=== PATIENT | male | born 1955 | race Caucasian/White ===

== ENCOUNTER 2018-02-24 21:19 | Emergency (ER) | payer MEDICARE, MEDICAID ==
[~2018-02-24] VITALS: Ht 170.2 cm; Wt 95.0 kg
[2018-02-24 21:34] VITALS: BP 200/99
== END 2018-02-25 01:16 | disposition left against medical advice (07) ==
LOC: ER 21:19
DX: Z53.21 Procedure and treatment not carried out due to patient leaving prior to being seen by health care provider (principal)

== ENCOUNTER 2023-06-26 07:24 | Emergency (ER) | payer MEDICARE, MEDICAID ==
[~2023-06-26] VITALS: Ht 177.8 cm; Wt 84.0 kg
[2023-06-26 07:28] VITALS: TEMP 97.7; O2SAT 99
[2023-06-26] MEDS: ONDANSETRON HCL 4MG/2ML INJ IV ONE (08:24)
[2023-06-26 08:30] LABS: HEMATOCRIT. 31.7 % (42.0-52.0); HEMOGLOBIN. 10.4 g/dL (14.0-18.0); MEAN CORPUSCULAR HEMOGLOBIN 31.1 pg (28.0-32.0); MEAN CORPUSCULAR HGB CONC 32.9 g/dL (31.0-37.0); MEAN CORPUSCULAR VOLUME 94.6 fL (80.0-94.0); MEAN PLATELET VOLUME 8.9 fl (7.4-10.4); PLATELET 195 x1000/uL (130-400); RED BLOOD CELL COUNT 3.35 mill/uL (4.7-6.1); RED CELL DISTRIBUTION WIDTH 13.4 % (11.6-14.6); WHITE BLOOD COUNT 11.7 x1000/uL (4.5-11.0)
[2023-06-26 08:31] LABS: DIFFERENTIAL COMMENT 1
[2023-06-26 08:45] LABS: ALANINE AMINOTRANSFERASE 16 IU/L (10-49); ALBUMIN 3.9 g/dL (3.2-4.8); ASPARTATE AMINOTRANSFERASE 27 IU/L (<34); BILIRUBIN TOTAL 0.4 mg/dL (0.1-1.0); CALCIUM 8.1 mg/dL (8.7-10.4); CARBON DIOXIDE 21 mEq/L (21-32); CHLORIDE 111 mEq/L (98-107); CREATININE 2.7 mg/dL (0.6-1.3); GLUCOSE 95 mg/dL (70-105); POTASSIUM 5.2 mEq/L (3.5-5.1); PROTEIN TOTAL 7.2 g/dL (6.0-8.3); SODIUM 139 mEq/L (136-145); TROPONIN I HIGH SENSITIVITY 11 ng/L (3.0-53); UREA NITROGEN BLOOD 28 mg/dL (9-23)
[2023-06-26 10:30] VITALS: BP 122/61; PULSE 66; RESP 16
[2023-06-26 16:11] LABS: PLATELET ESTIMATE NORMAL
== END 2023-06-26 10:34 | disposition home or self-care (01) ==
LOC: ER 07:24
DX: K52.9 Noninfective gastroenteritis and colitis, unspecified (principal); I12.9 Hypertensive chronic kidney disease with stage 1 through stage 4 chronic kidney disease, or unspecified chronic kidney disease; E11.22 Type 2 diabetes mellitus with diabetic chronic kidney disease; N18.9 Chronic kidney disease, unspecified; Z98.890 Other specified postprocedural states
CPT/HCPCS: 99285; 96374; 71045; 80053; 83880; 85025; 84484; 36415; 93005; J2405

== ENCOUNTER 2024-08-26 08:57 | Inpatient (IN) | payer OTHER, MEDICAID ==
[~2024-08-26] VITALS: Ht 170.2 cm; Wt 93.4 kg
[2024-08-26] MEDS: ONDANSETRON HCL 4MG/2ML INJ IV ONE (09:46)
[2024-08-26] MEDS: FAMOTIDINE 20MG/2ML VIAL IV ONE (09:46)
[2024-08-26] MEDS: LACTATED RINGERS 1,000 ML IV SCH (09:52)
[2024-08-26 09:54] LABS: BASOPHILS % 0.3 % (0.0-2.0); EOSINOPHILS % 0.2 % (0.0-5.0); HEMATOCRIT. 36.8 % (42.0-52.0); HEMOGLOBIN. 12.8 g/dL (14.0-18.0); LYMPHOCYTES % 12.3 % (20.0-50.0); MEAN CORPUSCULAR HEMOGLOBIN 31.9 pg (28.0-32.0); MEAN CORPUSCULAR HGB CONC 34.6 g/dL (31.0-37.0); MEAN CORPUSCULAR VOLUME 92.1 fL (80.0-94.0); MEAN PLATELET VOLUME 10.3 fl (7.4-10.4); MONOCYTES % 4.3 % (2.0-8.0); NEUTROPHILS % 82.9 % (40.0-76.0); PLATELET 201 x1000/uL (130-400); RED CELL DISTRIBUTION WIDTH 12.9 % (11.6-14.6)
[2024-08-26 10:00] LABS: CHLORIDE 95 mEq/L (98-107); POTASSIUM 3.5 mEq/L (3.5-5.1); SODIUM 138 mEq/L (136-145)
[2024-08-26 10:01] LABS: CALCIUM 9.1 mg/dL (8.7-10.4); CARBON DIOXIDE 30 mEq/L (21-32)
[2024-08-26 10:06] LABS: CREATININE 2.9 mg/dL (0.6-1.3); GLUCOSE 185 mg/dL (70-105); TROPONIN I HIGH SENSITIVITY 28 ng/L (3.0-53); UREA NITROGEN BLOOD 30 mg/dL (9-23)
[2024-08-26 10:08] LABS: ALANINE AMINOTRANSFERASE 17 IU/L (10-49); ALBUMIN 4.6 g/dL (3.2-4.8); ASPARTATE AMINOTRANSFERASE 22 IU/L (<34); BILIRUBIN DIRECT 0.2 mg/dL (<=3.0); BILIRUBIN TOTAL 0.7 mg/dL (0.1-1.0); PROTEIN TOTAL 7.5 g/dL (6.0-8.3)
[2024-08-26] MEDS: ASPIRIN 325MG TABLET PO ONE ×2 (11:49→12:53)
[2024-08-26] MEDS: METOCLOPRAMIDE HCL 10MG/2ML VIAL IV ONE (11:49)
[2024-08-26] MEDS: ACETAMINOPHEN 1000MG/100ML 100 ML IV ONE (11:50)
[2024-08-26 12:31] LABS: TROPONIN I HIGH SENSITIVITY 36 ng/L (3.0-53)
[2024-08-26] MEDS: LABETALOL 5MG/ML 4ML INJ IV ONE (12:38)
[2024-08-26 13:10] VITALS: BP 195/91; PULSE 85; RESP 20; TEMP 36.4; O2SAT 98
[2024-08-26] MEDS ORDERED: NALOXONE HCL 0.4MG/ML VIAL IV PRN (13:45)
[2024-08-26] MEDS: KETOROLAC 30MG/ML VIAL IV SCH (13:48)
[2024-08-26] MEDS: HYDRALAZINE 20MG/ML VIAL IV PRN (13:48)
[2024-08-26] MEDS: ONDANSETRON HCL 4MG/2ML INJ IV PRN (13:48)
[2024-08-26 14:00] VITALS: BP 195/91; PULSE 85; RESP 20; TEMP 36.5
[2024-08-26 14:30] LABS: ALANINE AMINOTRANSFERASE 15 IU/L (10-49); ALBUMIN 4.8 g/dL (3.2-4.8); ASPARTATE AMINOTRANSFERASE 23 IU/L (<34); BILIRUBIN DIRECT 0.2 mg/dL (<=3.0); BILIRUBIN TOTAL 0.7 mg/dL (0.1-1.0); PROTEIN TOTAL 7.5 g/dL (6.0-8.3)
[2024-08-26 14:44] LABS: HEPATITIS B SURFACE ANTIGEN NEGATIVE (Negative)
[2024-08-26 15:04] LABS: HEPATITIS A AB IGM NEGATIVE (Negative)
[2024-08-26 15:05] LABS: HEPATITIS B CORE AB IGM NEGATIVE (Negative); HEPATITIS C AB NON REACTIVE (Neg) (Negative)
[2024-08-26 16:00] VITALS: BP 131/57; PULSE 88; RESP 20; TEMP 37; O2SAT 100
[2024-08-26 16:22] LABS: INR 1.1; PROTHROMBIN TIME 11.8 sec (9.6-11.0)
[2024-08-26] MEDS: HYDROCODONE/ACETAMINOPHEN 5/325MG TABLET PO PRN (17:37)
[2024-08-26 18:32] LABS: CLARITY URINE CLEAR (CLEAR); COLOR URINE YELLOW (YELLOW); GLUCOSE URINE TRACE (NEGATIVE); KETONES URINE TRACE (NEGATIVE); LEUKOCYTE ESTERASE URINE NEGATIVE (NEGATIVE); NITRITE URINE NEGATIVE (NEGATIVE); OCCULT BLOOD URINE 1+ (NEGATIVE); PROTEIN URINE 3+ (NEGATIVE); SPECIFIC GRAVITY URINE 1.016 (1.005-1.030); UROBILINOGEN URINE 0.2 E.U./dL (0.2-1.0)
[2024-08-26 20:00] VITALS: BP 131/71; PULSE 86; RESP 20; TEMP 37; O2SAT 98
[2024-08-26 20:41] LABS: BACTERIA URINE 1+; SQUAMOUS EPITHELIAL CELL URINE FEW /lpf (RARE/1+); WBC URINE 0-2 /hpf (0-2)
[2024-08-26] MEDS: AMLODIPINE 10MG TABLET PO SCH (20:55)
[2024-08-26] MEDS: SODIUM CHLORIDE 0.9% 1,000 ML IV SCH (20:55)
[2024-08-26] MEDS ORDERED: KETOROLAC 30MG/ML VIAL IV PRN (21:45)
[2024-08-26] MEDS: MORPHINE SULFATE 4 MG/ML INJ (FOR IV/IM USE) IV SCH (21:48)
[2024-08-27] VITALS: BP 128/71; PULSE 84; RESP 18; TEMP 37; O2SAT 97
[2024-08-27 04:00] VITALS: BP 134/73; PULSE 85; RESP 18; TEMP 37.2; O2SAT 97
[2024-08-27 06:38] LABS: POTASSIUM 3.7 mEq/L (3.5-5.1)
[2024-08-27 06:39] LABS: CALCIUM 8.6 mg/dL (8.7-10.4)
[2024-08-27 06:44] LABS: CREATININE 3.3 mg/dL (0.6-1.3)
[2024-08-27 06:47] LABS: HEMATOCRIT. 33.8 % (42.0-52.0); HEMOGLOBIN. 11.6 g/dL (14.0-18.0); LYMPHOCYTES % 7.5 % (20.0-50.0); MEAN CORPUSCULAR HEMOGLOBIN 31.9 pg (28.0-32.0); MEAN CORPUSCULAR HGB CONC 34.4 g/dL (31.0-37.0); MEAN CORPUSCULAR VOLUME 92.7 fL (80.0-94.0); MEAN PLATELET VOLUME 10.2 fl (7.4-10.4); MONOCYTES % 7.4 % (2.0-8.0); NEUTROPHILS % 85.1 % (40.0-76.0); PLATELET 183 x1000/uL (130-400); RED BLOOD CELL COUNT 3.65 mill/uL (4.7-6.1); WHITE BLOOD COUNT 12.6 x1000/uL (4.5-11.0)
[2024-08-27 08:00] VITALS: BP 161/58; PULSE 80; RESP 18; TEMP 36.7; O2SAT 94
[2024-08-27] MEDS: PANTOPRAZOLE SODIUM 40 MG/VIAL IV SCH (09:14)
[2024-08-27] MEDS: ENOXAPARIN 30MG/0.3ML SYR SUBCUT SCH (09:15)
[2024-08-27 12:00] VITALS: BP 158/78; PULSE 70; RESP 17; TEMP 36.7; O2SAT 95
[2024-08-27] MEDS: METOCLOPRAMIDE HCL 10MG/2ML VIAL IV PRN (12:41)
[2024-08-27 16:00] VITALS: BP 164/80; PULSE 70; RESP 16; TEMP 36.7; O2SAT 95
[2024-08-27] MEDS: MORPHINE SULFATE 4 MG/ML INJ (FOR IV/IM USE) IV SCH (17:05)
[2024-08-27 17:07] LABS: TRIGLYCERIDE 96 mg/dL (0-150)
[2024-08-27 17:08] LABS: LDL CHOLESTEROL 105 mg/dL (5-100)
[2024-08-27 17:09] LABS: CHOLESTEROL 131 mg/dL (<200); HDL CHOLESTEROL 32 mg/dL (>55); PHOSPHORUS 3.8 mg/dL (2.5-4.9)
[2024-08-27 17:20] LABS: CREATINE KINASE 1706 IU/L (46-171)
[2024-08-27 20:00] VITALS: BP 120/58; PULSE 82; RESP 17; TEMP 36.9; O2SAT 94
[2024-08-28] VITALS: BP 136/70; PULSE 74; RESP 18; TEMP 36.4; O2SAT 93
[2024-08-28 02:50] LABS: CREATININE URINE RANDOM 134.4 mg/dL
[2024-08-28 04:00] VITALS: BP 122/68; PULSE 60; RESP 19; TEMP 36.7; O2SAT 93
[2024-08-28 05:53] LABS: BASOPHILS % 0.2 % (0.0-2.0); EOSINOPHILS % 0.1 % (0.0-5.0); HEMATOCRIT. 33.2 % (42.0-52.0); HEMOGLOBIN. 11.6 g/dL (14.0-18.0); LYMPHOCYTES % 9.6 % (20.0-50.0); MEAN CORPUSCULAR HEMOGLOBIN 32.3 pg (28.0-32.0); MEAN CORPUSCULAR HGB CONC 34.9 g/dL (31.0-37.0); MEAN CORPUSCULAR VOLUME 92.6 fL (80.0-94.0); MEAN PLATELET VOLUME 9.9 fl (7.4-10.4); MONOCYTES % 6.5 % (2.0-8.0); NEUTROPHILS % 83.6 % (40.0-76.0); PLATELET 172 x1000/uL (130-400); RED BLOOD CELL COUNT 3.59 mill/uL (4.7-6.1); RED CELL DISTRIBUTION WIDTH 13.2 % (11.6-14.6)
[2024-08-28 05:59] LABS: POTASSIUM 3.7 mEq/L (3.5-5.1)
[2024-08-28 06:00] LABS: CALCIUM 8.8 mg/dL (8.7-10.4)
[2024-08-28 06:05] LABS: CREATININE 3.5 mg/dL (0.6-1.3)
[2024-08-28 08:00] VITALS: BP 168/83; PULSE 99; RESP 16; TEMP 36.2; O2SAT 95
[2024-08-28 12:00] VITALS: BP 148/72; PULSE 74; RESP 16; TEMP 36.3; O2SAT 95
[2024-08-28 16:00] VITALS: BP 156/87; PULSE 69; RESP 16; TEMP 36.3; O2SAT 95
[2024-08-28 20:00] VITALS: BP 111/95; PULSE 77; RESP 18; TEMP 37.4; O2SAT 93
[2024-08-29] VITALS: BP 178/82; PULSE 89; RESP 18; TEMP 36.8; O2SAT 94
[2024-08-29 04:00] VITALS: BP 151/66; PULSE 82; RESP 17; TEMP 36.7; O2SAT 95
[2024-08-29 06:34] LABS: CALCIUM 8.2 mg/dL (8.7-10.4); POTASSIUM 3.5 mEq/L (3.5-5.1)
[2024-08-29 06:35] LABS: BASOPHILS % 0.3 % (0.0-2.0); EOSINOPHILS % 0.2 % (0.0-5.0); HEMATOCRIT. 31.9 % (42.0-52.0); HEMOGLOBIN. 10.9 g/dL (14.0-18.0); LYMPHOCYTES % 10.8 % (20.0-50.0); MEAN CORPUSCULAR HEMOGLOBIN 31.8 pg (28.0-32.0); MEAN CORPUSCULAR HGB CONC 34.1 g/dL (31.0-37.0); MEAN CORPUSCULAR VOLUME 93.2 fL (80.0-94.0); MEAN PLATELET VOLUME 9.9 fl (7.4-10.4); MONOCYTES % 6.7 % (2.0-8.0); PLATELET 168 x1000/uL (130-400); RED BLOOD CELL COUNT 3.42 mill/uL (4.7-6.1); RED CELL DISTRIBUTION WIDTH 12.9 % (11.6-14.6); WHITE BLOOD COUNT 8.2 x1000/uL (4.5-11.0)
[2024-08-29 07:07] LABS: ALPHA FETOPROTEIN TUMOR MARKER < 1.8 ng/mL (0.0-8.4); CA 19-9 < 2 U/mL (0-35)
[2024-08-29 08:00] VITALS: BP 160/86; PULSE 61; RESP 18; TEMP 37.1; O2SAT 94
[2024-08-29] MEDS: ACETAMINOPHEN 325MG TABLET PO PRN (12:05)
[2024-08-29 12:15] VITALS: BP 155/75; PULSE 81; RESP 16; TEMP 37.7; O2SAT 93
[2024-08-29 14:19] LABS: IRON 94 ug/dL (65-175)
[2024-08-29 14:21] LABS: CREATINE KINASE 757 IU/L (46-171)
[2024-08-29 14:22] LABS: TOTAL IRON BINDING CAPACITY 278 ug/dl (250-425)
[2024-08-29 16:02] VITALS: BP 157/74; PULSE 67; RESP 18; TEMP 36.9; O2SAT 97
[2024-08-29] MEDS: POLYETHYLENE GLYCOL 3350 (17GM) 1 DOSE PACK PO SCH (18:09)
[2024-08-29 20:00] VITALS: BP 146/80; PULSE 78; RESP 20; TEMP 37.2; O2SAT 95
[2024-08-29] MEDS: DOCUSATE SODIUM 100MG CAPSULE PO SCH (21:55)
[2024-08-29] MEDS: SENNOSIDES 8.6MG TABLET PO SCH (21:55)
[2024-08-30] VITALS: BP 145/70; PULSE 71; RESP 18; TEMP 37.2; O2SAT 95
[2024-08-30 04:00] VITALS: BP 153/87; PULSE 71; RESP 20; TEMP 37.7; O2SAT 95
[2024-08-30 06:11] LABS: ANTI-NUCLEAR ANTIBODIES DIRECT Negative (Negative); COMPLEMENT C3 97 mg/dL (82-167); COMPLEMENT C4 22 mg/dL (12-38)
[2024-08-30 06:49] LABS: CHLORIDE 103 mEq/L (98-107); POTASSIUM 3.4 mEq/L (3.5-5.1); SODIUM 139 mEq/L (136-145)
[2024-08-30 06:52] LABS: CALCIUM 8.5 mg/dL (8.7-10.4); CARBON DIOXIDE 25 mEq/L (21-32)
[2024-08-30 06:57] LABS: ALANINE AMINOTRANSFERASE 30 IU/L (10-49); CREATININE 2.8 mg/dL (0.6-1.3); GLUCOSE 133 mg/dL (70-105); UREA NITROGEN BLOOD 43 mg/dL (9-23)
[2024-08-30 06:59] LABS: ALBUMIN 3.9 g/dL (3.2-4.8); ASPARTATE AMINOTRANSFERASE 48 IU/L (<34); BILIRUBIN TOTAL 0.7 mg/dL (0.1-1.0); PHOSPHORUS 2.8 mg/dL (2.5-4.9)
[2024-08-30 07:00] LABS: PROTEIN TOTAL 6.1 g/dL (6.0-8.3)
[2024-08-30 07:33] LABS: BASOPHILS % 0.2 % (0.0-2.0); EOSINOPHILS % 0.3 % (0.0-5.0); HEMATOCRIT. 31.1 % (42.0-52.0); HEMOGLOBIN. 10.9 g/dL (14.0-18.0); LYMPHOCYTES % 12.8 % (20.0-50.0); MEAN CORPUSCULAR HEMOGLOBIN 32.3 pg (28.0-32.0); MEAN CORPUSCULAR HGB CONC 34.9 g/dL (31.0-37.0); MEAN CORPUSCULAR VOLUME 92.5 fL (80.0-94.0); MEAN PLATELET VOLUME 10.2 fl (7.4-10.4); NEUTROPHILS % 78.7 % (40.0-76.0); PLATELET 163 x1000/uL (130-400); RED BLOOD CELL COUNT 3.37 mill/uL (4.7-6.1); RED CELL DISTRIBUTION WIDTH 12.8 % (11.6-14.6); WHITE BLOOD COUNT 7.6 x1000/uL (4.5-11.0)
[2024-08-30 08:00] VITALS: BP 139/85; PULSE 70; RESP 16; TEMP 37; O2SAT 95
[2024-08-30 12:00] VITALS: BP 152/80; PULSE 71; RESP 16; TEMP 36.6; O2SAT 96
[2024-08-30 16:00] VITALS: BP 158/77; PULSE 72; RESP 16; TEMP 37.2; O2SAT 96
[2024-08-30] MEDS: POTASSIUM CHLORIDE 20MEQ TABLET SR PO NR (18:01)
[2024-08-30 20:00] VITALS: BP 115/67; PULSE 74; RESP 18; TEMP 37.1; O2SAT 94
[2024-08-31] VITALS: BP 150/66; PULSE 64; RESP 18; TEMP 37.3; O2SAT 95
[2024-08-31 06:05] VITALS: BP 176/85; PULSE 71; RESP 20; TEMP 37.1; O2SAT 95
[2024-08-31 07:00] LABS: POTASSIUM 3.4 mEq/L (3.5-5.1)
[2024-08-31 07:06] LABS: CREATININE 2.5 mg/dL (0.6-1.3)
[2024-08-31 08:00] VITALS: BP 152/77; PULSE 102; PULSE 82; RESP 18; TEMP 36.6; O2SAT 9; O2SAT 97
[2024-08-31 11:06] VITALS: BP 153/82; PULSE 72; TEMP 97.2; O2SAT 96
[2024-08-31] MEDS: POTASSIUM CHLORIDE 20MEQ TABLET SR PO SCH (11:16)
[2024-08-31 12:00] VITALS: BP 153/82; PULSE 72; RESP 17; TEMP 36.2; O2SAT 96
== END 2024-08-31 12:50 | disposition home or self-care (01) | DRG 683 ==
LOC: ER 08:57 → 7WST 12:03 → EDBEDREQSVC 12:05 → EDBEDREQ 12:05
PROVIDERS: ADMIT Internal Medicine; ATTEND Internal Medicine
DX: N17.9 Acute kidney failure, unspecified (principal); M62.82 Rhabdomyolysis; I16.0 Hypertensive urgency; N18.9 Chronic kidney disease, unspecified; K74.60 Unspecified cirrhosis of liver; E11.65 Type 2 diabetes mellitus with hyperglycemia; E11.22 Type 2 diabetes mellitus with diabetic chronic kidney disease; I12.9 Hypertensive chronic kidney disease with stage 1 through stage 4 chronic kidney disease, or unspecified chronic kidney disease; D64.9 Anemia, unspecified; I25.10 Atherosclerotic heart disease of native coronary artery without angina pectoris; K57.30 Diverticulosis of large intestine without perforation or abscess without bleeding; R80.9 Proteinuria, unspecified; D72.829 Elevated white blood cell count, unspecified; R16.0 Hepatomegaly, not elsewhere classified; Z90.49 Acquired absence of other specified parts of digestive tract; Z85.05 Personal history of malignant neoplasm of liver
CPT/HCPCS: 36415; 71045; 74176; 74181; 76770; 80048; 80053; 80061; 80076; 81003; 82105; 82248; 82378; 82550; 82570; 82728; 83036; 83540; 83550; 83735; 83970; 84100; 84145; 84153; 84156; 84300; 84484; 85025; 86038; 86160; 86301; 86705; 86709; 87340; 93005; 99291; A4606; J0360; J1308; J1650; J1885; J2270; J2405; J2470; J2765; J3490; J7030; J0131